=== PATIENT | female | born 1975 | race Caucasian/White ===

== ENCOUNTER → 2018-01-28 11:43 | Outpatient (CLI) | payer BC, SELFPAY ==
[2018-01-28 13:26] LABS: Add Manual Diff / Slide Review NO; Basophils Percent Auto 0.4 % (0-2); Eosinophils Percent Auto 6.8 % (2-4); Hematocrit 38.5 % (36-46); Hemoglobin 13.1 g/dL (12.0-16.0); Lymphocytes Percent Auto 24.6 % (25-40); Mean Corpuscular Hemoglobin 27.2 PG (26-34); Mean Corpuscular Volume 79.9 fL (80-100); Monocytes Percent Auto 6.1 % (3-14); Neutrophils Absolute Auto 5100 /uL (3000-5900); Neutrophils Percent Auto 62.1 % (50-75); Platelet Count 297 X10^3/uL (150-400); Red Blood Cell Count 4.81 X10^6/uL (4.0-5.2); Red Cell Distribution Width 13.8 % (11.6-14.8); White Blood Cell Count 8.2 X10^3/uL (4.5-11.0)
[2018-01-28 13:39] LABS: Hemoglobin A1C% w Est Avg Glu 6.3 % (4.0-6.0)
[2018-01-28 13:41] LABS: HEMOLYSIS < 15 (0-50); Iron 60 ug/dL (37-170)
[2018-01-28 13:44] LABS: Alanine Aminotransferase 33 IU/L (9-52); Albumin 4.4 g/dL (3.5-5.0); Albumin Globulin Ratio 1.2 (1.0-2.8); Alkaline Phosphatase 89 U/L (38-126); Aspartate Aminotransferase 33 IU/L (14-36); Bilirubin Total 0.7 mg/dL (0.2-1.3); Blood Urea Nitrogen 9 mg/dL (7-17); Carbon Dioxide 30 mmol/L (22-32); Chloride 103 mmol/L (98-107); Cholesterol 194 mg/dL (140-199); Estimated Glomerular Filt Rate > 60.0 mL/min (>60); Globulin 3.8 g/dL (1.7-4.1); Glucose 113 mg/dL (70-100); HDL Cholesterol 30 mg/dL (40-60); HEMOLYSIS < 15 (0-50); LDL Cholesterol Calculated 131 mg/dL (<100); Potassium 4.2 mmol/L (3.4-5.1); Sodium 144 mmol/L (137-145); Total Protein 8.2 g/dL (6.3-8.2); Triglycerides 167 mg/dL (35-150)
[2018-01-28 13:51] LABS: Percent Iron Saturation 17 % (15-50); Total Iron Binding Capacity 360 ug/dL (265-497); Transferrin 294 mg/dL (206-381)
[2018-01-28 13:54] LABS: INR 1.1 (0.9-1.3); Prothrombin Time 12.2 SECONDS (10.1-12.7)
[2018-01-28 13:57] LABS: PTT Partial Thromboplastin Tim 17 SECONDS (26.4-36.2)
[2018-01-28 14:12] LABS: Thyroid Stimulating Hormone 0.83 uIU/mL (0.47-4.68)
[2018-01-28 14:16] LABS: Ferritin 23.5 ng/mL (6.27-137)
[2018-01-28 14:34] LABS: Vitamin D 25 Hydroxy (D3) 28.4 ng/mL (30.0-100.0)
[2018-01-28 14:46] LABS: Vitamin B12 481 pg/mL (239-931)
[2018-01-31 15:06] LABS: Parathyroid Hormone Int 92 pg/mL (14-64)
[2018-01-31 16:40] LABS: Folate, RBC 581 ng/mL RBC (> 280)
== END ==
PROVIDERS: PCP Family Medicine; Visit Provider Surgery
DX: E88.81 Metabolic syndrome and other insulin resistance (principal)
CPT/HCPCS: 36415; 80053; 80061; 82306; 82607; 82728; 82747; 83036; 83540; 83550; 83970; 84443; 85025; 85610; 85730

== ENCOUNTER → 2018-06-20 16:39 | Outpatient (CLI) | payer BC, SELFPAY ==
[2018-06-20 17:52] LABS: Add Manual Diff / Slide Review NO; Basophils Absolute Auto 0 /uL (0-100); Basophils Percent Auto 0.3 % (0-2); Eosinophils Absolute Auto 100 /uL (0-450); Eosinophils Percent Auto 1.5 % (2-4); Hematocrit 35.1 % (36-46); Hemoglobin 11.3 g/dL (12.0-16.0); Lymphocytes Absolute Auto 2600 /uL (1100-4500); Lymphocytes Percent Auto 33.1 % (25-40); Mean Corpuscular HGB Conc 32.2 % (30-36); Mean Corpuscular Hemoglobin 27.2 PG (26-34); Mean Corpuscular Volume 84.6 fL (80-100); Monocytes Absolute Auto 600 /uL (0-900); Neutrophils Absolute Auto 4600 /uL (1500-7000); Neutrophils Percent Auto 58.1 % (50-75); Platelet Count 275 X10^3/uL (150-400); Red Blood Cell Count 4.14 X10^6/uL (4.0-5.2); White Blood Cell Count 7.9 X10^3/uL (4.5-11.0)
== END ==
PROVIDERS: PCP Family Medicine; Visit Provider Family Medicine
DX: N92.0 Excessive and frequent menstruation with regular cycle (principal)
CPT/HCPCS: 36415; 85025

== ENCOUNTER → 2018-08-19 10:54 | Outpatient (CLI) | payer BC, SELFPAY ==
[2018-08-19 11:53] LABS: Add Manual Diff / Slide Review NO; Basophils Absolute Auto 0 /uL (0-100); Basophils Percent Auto 0.4 % (0-2); Eosinophils Absolute Auto 100 /uL (0-450); Eosinophils Percent Auto 1.8 % (2-4); Hematocrit 35.7 % (36-46); Hemoglobin 11.8 g/dL (12.0-16.0); Lymphocytes Absolute Auto 1700 /uL (1100-4500); Lymphocytes Percent Auto 32.7 % (25-40); Mean Corpuscular HGB Conc 33.1 % (30-36); Mean Corpuscular Hemoglobin 26.9 PG (26-34); Mean Corpuscular Volume 81.2 fL (80-100); Monocytes Absolute Auto 300 /uL (0-900); Monocytes Percent Auto 6.4 % (3-14); Neutrophils Absolute Auto 3000 /uL (1500-7000); Neutrophils Percent Auto 58.7 % (50-75); Platelet Count 250 X10^3/uL (150-400); Red Blood Cell Count 4.39 X10^6/uL (4.0-5.2); Red Cell Distribution Width 12.8 % (11.6-14.8); White Blood Cell Count 5.1 X10^3/uL (4.5-11.0)
[2018-08-19 11:57] LABS: HEMOLYSIS < 15 (0-50)
[2018-08-19 12:02] LABS: Hemoglobin A1C% w Est Avg Glu 5.2 % (4.0-6.0)
[2018-08-19 12:03] LABS: Alanine Aminotransferase 24 IU/L (9-52); Albumin 4.4 g/dL (3.5-5.0); Albumin Globulin Ratio 1.3 (1.0-2.8); Alkaline Phosphatase 88 U/L (38-126); Aspartate Aminotransferase 21 IU/L (14-36); BUN Creatinine Ratio 14.3 (6-22); Bilirubin Total 0.8 mg/dL (0.2-1.3); Bilirubin Unconjugated 0.6 mg/dL (0.0-1.1); Blood Urea Nitrogen 10 mg/dL (7-17); Calcium 9.3 mg/dL (8.4-10.2); Carbon Dioxide 28 mmol/L (22-32); Chloride 103 mmol/L (98-107); Estimated Glomerular Filt Rate > 60.0 mL/min (>60); Globulin 3.3 g/dL (1.7-4.1); Glucose 87 mg/dL (70-100); Potassium 3.9 mmol/L (3.4-5.1); Sodium 140 mmol/L (137-145); Total Protein 7.7 g/dL (6.3-8.2)
[2018-08-19 12:22] LABS: HEMOLYSIS < 15 (0-50); Iron 45 ug/dL (37-170)
[2018-08-19 12:32] LABS: Percent Iron Saturation 11 % (15-50); Total Iron Binding Capacity 423 ug/dL (265-497); Transferrin 331 mg/dL (206-381)
[2018-08-19 12:36] LABS: Vitamin D 25 Hydroxy (D3) 36.9 ng/mL (30.0-100.0)
[2018-08-19 12:38] LABS: Ferritin 5.1 ng/mL (6.27-137)
[2018-08-19 13:10] LABS: Vitamin B12 626 pg/mL (239-931)
[2018-08-22 15:00] LABS: Parathyroid Hormone Int 79 pg/mL (14-64)
[2018-08-22 16:38] LABS: Vitamin B1 167 nmol/L (78-185)
[2018-08-23 10:30] LABS: Folate, RBC 738 ng/mL RBC (> 280)
[2018-08-24 03:36] LABS: Vitamin A 43 mcg/dL (38-98)
== END ==
PROVIDERS: PCP Family Medicine
DX: R10.9 Unspecified abdominal pain (principal); K91.2 Postsurgical malabsorption, not elsewhere classified
CPT/HCPCS: 36415; 80053; 80076; 82306; 82607; 82728; 82747; 83036; 83540; 83550; 83970; 84425; 84590; 85025

== ENCOUNTER → 2018-08-21 07:46 | Outpatient (CLI) | payer BC, SELFPAY ==
--- NOTE | 2018-08-21 | DI.US.S_ITS ---
PROCEDURE: US ABDOMEN LIMITED INDICATIONS: ABOMINAL WALL PAIN, R/O SEROMA/HERNIA TECHNIQUE: Real-time focused scanning was performed of the abdomen, with image documentation. COMPARISON: [facility], , ABDOMEN COMPLETE, 08/23/2016, 14:38. FINDINGS: Limited sonographic images in the right lower quadrant at the incision site demonstrates no mass lesion or fluid collection. No hernia is identified. IMPRESSION: No visualization of fluid collection or hernia. Dictated by: Elke Rizvi M.D. on 08/21/2018 at 14:04 Approved by: Elke Rizvi M.D. on 08/21/2018 at 14:05
== END ==
PROVIDERS: PCP Family Medicine
DX: R10.31 Right lower quadrant pain (principal)
CPT/HCPCS: 76705

== ENCOUNTER → 2019-06-13 12:39 | Outpatient (CLI) | payer OTHER, SELFPAY | PROVIDERS: PCP Family Medicine; Visit Provider Family Medicine | DX: L02.619 Cutaneous abscess of unspecified foot (principal) | CPT/HCPCS: 87070; 87075; 87205 ==

== ENCOUNTER → 2022-04-29 16:16 | Outpatient (CLI) | payer OTHER, SELFPAY ==
[2022-04-29 17:19] LABS: Influenza A - CEPHEID Flu A NEGATIVE (NEGATIVE); Influenza B - CEPHEID Flu B NEGATIVE (NEGATIVE); Respiratory Syncytial Virus Negative (Negative)
[2022-04-29 17:35] LABS: COVID-19 CEPHEID 4-PLEX PCR Negative (Negative)
== END ==
PROVIDERS: PCP Family Medicine; Visit Provider Nurse Practitioner Family
DX: J06.9 Acute upper respiratory infection, unspecified (principal); Z20.822 Contact with and (suspected) exposure to COVID-19
CPT/HCPCS: 0241U

== ENCOUNTER → 2022-10-27 15:24 | Outpatient (CLI) | payer OTHER, SELFPAY ==
--- NOTE | 2022-10-27 15:25 | DI.RAD.S_ITS ---
PROCEDURE: XR KNEE RT 3V INDICATIONS: Right knee pain TECHNIQUE: 3 views of the knee were acquired. COMPARISON: None. FINDINGS: Bones: No definite fractures or dislocations. Small ossicle adjacent to the medial femoral condyle. Osteophytic lipping at the patella. No suspicious bony lesions. Soft tissues: Trace joint effusion. No suspicious soft tissue calcifications. IMPRESSION: Small ossicle adjacent to the medial femoral condyle. Clinical significance is uncertain. Trace joint effusion. Osteophytic lipping at the patella. Early onset. If clinically indicated MRI could be considered for further evaluation. Dictated by: Surya Valentino M.D. on 10/27/2022 at 18:09 Approved by: Surya Valentino M.D. on 10/27/2022 at 18:12
== END ==
PROVIDERS: PCP Family Medicine; Referring Provider Physician Assistant; Visit Provider Physician Assistant
DX: M25.561 Pain in right knee (principal)
CPT/HCPCS: 73562

== ENCOUNTER → 2023-02-11 08:23 | Outpatient (CLI) | payer OTHER, SELFPAY ==
[2023-02-11 09:28] LABS: Alanine Aminotransferase 26 IU/L (<35); Albumin 4.4 g/dL (3.5-5.0); Albumin Globulin Ratio 1.5 (1.0-2.8); Alkaline Phosphatase 80 U/L (38-126); Aspartate Aminotransferase 27 IU/L (14-36); Bilirubin Total 0.8 mg/dL (0.2-1.3); Blood Urea Nitrogen 11 mg/dL (7-17); Calcium 9.3 mg/dL (8.4-10.2); Carbon Dioxide 24 mmol/L (22-32); Chloride 104 mmol/L (98-107); Cholesterol 170 mg/dL (140-199); Estimated Glomerular Filt Rate > 60 mL/min (>60); Glucose 90 mg/dL (70-100); HDL Cholesterol 45 mg/dL (40-60); HEMOLYSIS < 15 (0-50); LDL Cholesterol Calculated 102 mg/dL (<100); Potassium 4.7 mmol/L (3.4-5.1); Sodium 137 mmol/L (137-145); Total Protein 7.4 g/dL (6.3-8.2); Triglycerides 117 mg/dL (35-150)
[2023-02-11 14:40] LABS: Hemoglobin A1C% w Est Avg Glu 4.9 % (4.0-6.0)
== END ==
PROVIDERS: PCP Family Medicine; Referring Provider Family Medicine; Visit Provider Family Medicine
DX: R73.03 Prediabetes (principal)
CPT/HCPCS: 36415; 80053; 80061; 83036

== ENCOUNTER → 2023-07-02 09:27 | Outpatient (CLI) | payer OTHER, SELFPAY ==
--- NOTE | 2023-07-02 09:28 | DI.MG.S_ITS ---
BILATERAL DIGITAL SCREENING MAMMOGRAM 3D/2D WITH CAD: 07/02/2023 CLINICAL: Routine screening. Comparison is made to exam dated: 08/23/2016 mammogram - [facility]. Both breasts are heterogeneously dense, which may obscure small masses (category c / 51-75% glandular tissue). Current study was also evaluated with a Computer Aided Detection (CAD) system. There is a focal asymmetry in the left breast at 11 o'clock posterior depth. This is more prominent. No other significant masses, calcifications, or other findings are seen in either breast. IMPRESSION: INCOMPLETE: NEEDS ADDITIONAL IMAGING EVALUATION The focal asymmetry in the left breast is indeterminate. Additional views with possible ultrasound are recommended. Based on the Tyrer Cuzick model (a risk assessment model) the patient's lifetime risk is 16.1% and her 10 year risk is 3.7%. According to the ACR, ACS, and NCCN guidelines, an annual breast MRI exam along with mammogram is recommended if the patient's lifetime risk is 20% or greater. This exam was interpreted at Station ID: [id number]. NOTE: For mammograms, a report in lay terms will be sent to the patient. Approximately 15% of breast malignancies will not be visualized mammographically. In the management of a palpable breast mass, a negative mammogram must not discourage biopsy of a clinically suspicious lesion. Electronically Signed By: Kristopher Ni M.D. lc/:07/04/2023 13:10:53 letter sent: Additional Imaging Needed ACR BI-RADS Category 0: Incomplete 3340F
== END ==
LOC: MAMMO 09:28
PROVIDERS: PCP Family Medicine; Referring Provider Family Medicine; Visit Provider Family Medicine
DX: Z12.31 Encounter for screening mammogram for malignant neoplasm of breast (principal); R92.333 Mammographic heterogeneous density, bilateral breasts
CPT/HCPCS: 77063; 77067

== ENCOUNTER → 2023-07-14 09:33 | Outpatient (CLI) | payer OTHER, SELFPAY ==
--- NOTE | 2023-07-14 09:35 | DI.MG.S_ITS ---
UNILATERAL LEFT DIGITAL DIAGNOSTIC MAMMOGRAM 3D/2D WITH ADDITIONAL VIEWS: 07/14/2023 CLINICAL: Additional evaluation requested from prior study. Comparison is made to exams dated: 07/02/2023 mammogram and 08/23/2016 mammogram - [facility]. The left breast is heterogeneously dense, which may obscure small masses (category c / 51-75% glandular tissue). There is a possible focal asymmetry in the left breast at 11 o'clock posterior depth. This is not seen in additional views. No other significant masses or calcifications are seen in the breast. IMPRESSION: BENIGN There is no mammographic evidence of malignancy. The possible focal asymmetry in the left breast is consistent with fibroglandular tissue and is benign. A 1 year screening mammogram is recommended. Based on the Tyrer Cuzick model (a risk assessment model) the patient's lifetime risk is 16.1% and her 10 year risk is 3.7%. According to the ACR, ACS, and NCCN guidelines, an annual breast MRI exam along with mammogram is recommended if the patient's lifetime risk is 20% or greater. This exam was interpreted at Station ID: [id number]. NOTE: For mammograms, a report in lay terms will be sent to the patient. Approximately 15% of breast malignancies will not be visualized mammographically. In the management of a palpable breast mass, a negative mammogram must not discourage biopsy of a clinically suspicious lesion. Electronically Signed By: Surya Valentino M.D. slc/:07/14/2023 10:06:06 letter sent: Normal Exam ACR BI-RADS Category 2: Benign Finding(s) 3342F
== END ==
LOC: MAMMO 09:33
PROVIDERS: PCP Family Medicine; Referring Provider Family Medicine; Visit Provider Family Medicine
DX: R92.8 Other abnormal and inconclusive findings on diagnostic imaging of breast (principal); R92.332 Mammographic heterogeneous density, left breast
CPT/HCPCS: 77065; G0279

== ENCOUNTER → 2024-01-06 15:20 | Outpatient (CLI) | payer OTHER, SELFPAY ==
--- NOTE | 2024-01-06 15:21 | DI.RAD.S_ITS ---
PROCEDURE: XR KNEE LT 3V INDICATIONS: L I fall TECHNIQUE: 3 views of the knee were acquired. COMPARISON: [facility], CR, XR KNEE RT 3V, 10/27/2022, 15:21. FINDINGS: No left knee effusion. Multiple heterotopic ossifications superficial to the patella, representing prior injury. Minimal degenerative change of the patellofemoral compartment. No acute fracture or dislocation. IMPRESSION: No acute bony abnormality or significant effusion. Dictated by: Alicia Arnold M.D. on 01/06/2024 at 17:12 Approved by: Alicia Arnold M.D. on 01/06/2024 at 17:13
--- NOTE | 2024-01-06 15:21 | DI.RAD.S_ITS ---
PROCEDURE: XR WRIST RT MIN 3V INDICATIONS: L I fall TECHNIQUE: 4 views of the wrist were acquired. COMPARISON: None. FINDINGS: Ulnar negative variance. Linear lucency at the radial styloid, concerning for nondisplaced fracture versus artifact. Minimal degenerative change of the triscaphe and the 1st carpometacarpal joint. IMPRESSION: Findings concerning for nondisplaced radial styloid fracture versus artifact. Recommend follow-up radiograph in 7-10 days. Dictated by: Alicia Arnold M.D. on 01/06/2024 at 17:08 Approved by: Alicia Arnold M.D. on 01/06/2024 at 17:12
== END ==
PROVIDERS: PCP Family Medicine; Referring Provider Nurse Practitioner Family; Visit Provider Nurse Practitioner Family
DX: S66.911A Strain of unspecified muscle, fascia and tendon at wrist and hand level, right hand, initial encounter (principal); S80.02XA Contusion of left knee, initial encounter; W19.XXXA Unspecified fall, initial encounter
CPT/HCPCS: 73110; 73562

== ENCOUNTER → 2024-03-10 17:45 | Outpatient (CLI) | payer OTHER, SELFPAY ==
[2024-03-10 18:47] LABS: Influenza A - CEPHEID Flu A NEGATIVE (NEGATIVE); Influenza B - CEPHEID Flu B NEGATIVE (NEGATIVE); Respiratory Syncytial Virus Negative (Negative)
[2024-03-10 19:28] LABS: COVID-19 CEPHEID 4-PLEX PCR Negative (Negative)
== END ==
PROVIDERS: PCP Family Medicine; Referring Provider Nurse Practitioner Family; Visit Provider Nurse Practitioner Family
DX: J02.9 Acute pharyngitis, unspecified (principal); R05.1 Acute cough; B34.9 Viral infection, unspecified
CPT/HCPCS: 0241U; 87070

== ENCOUNTER → 2024-07-10 08:46 | Outpatient (CLI) | payer OTHER, SELFPAY ==
[2024-07-10 10:17] LABS: Alanine Aminotransferase 20 IU/L (<35); Albumin 4.4 g/dL (3.5-5.0); Albumin Globulin Ratio 1.6 (1.0-2.8); Alkaline Phosphatase 87 U/L (38-126); Aspartate Aminotransferase 26 IU/L (14-36); BUN Creatinine Ratio 17.4 (6-22); Bilirubin Total 0.8 mg/dL (0.2-1.3); Blood Urea Nitrogen 12 mg/dL (7-17); Calcium 9.1 mg/dL (8.4-10.2); Carbon Dioxide 26 mmol/L (22-32); Chloride 103 mmol/L (98-107); Estimated Glomerular Filt Rate > 60 mL/min (>60); Globulin 2.8 g/dL (1.7-4.1); Glucose 95 mg/dL (70-100); HEMOLYSIS < 15 (0-50); Potassium 4.7 mmol/L (3.4-5.1); Sodium 139 mmol/L (137-145); Total Protein 7.2 g/dL (6.3-8.2)
== END ==
PROVIDERS: PCP Family Medicine; Referring Provider Family Medicine; Visit Provider Family Medicine
DX: E28.2 Polycystic ovarian syndrome (principal); R73.03 Prediabetes; Z68.42 Body mass index [BMI] 45.0-49.9, adult
CPT/HCPCS: 36415; 80053

== ENCOUNTER → 2024-07-17 07:49 | Outpatient (CLI) | payer OTHER, SELFPAY ==
--- NOTE | 2024-07-17 07:50 | DI.RAD.S_ITS ---
PROCEDURE: XR WRIST RT 2V INDICATIONS: pain, old injury in 2023 TECHNIQUE: 2 views of the wrist were acquired. COMPARISON: None. FINDINGS: Bones: No fractures or dislocations. No suspicious bony lesions. Soft tissues: No suspicious soft tissue calcifications. IMPRESSION: No acute bony abnormality. Dictated by: Keisha Reid MD, PhD on 07/17/2024 at 9:37 Approved by: Keisha Reid MD, PhD on 07/17/2024 at 9:38
== END ==
PROVIDERS: PCP Family Medicine; Referring Provider Family Medicine; Visit Provider Family Medicine
DX: M25.531 Pain in right wrist (principal)
CPT/HCPCS: 73100

== ENCOUNTER → 2024-11-06 15:32 | Outpatient (CLI) | payer OTHER, SELFPAY ==
--- NOTE | 2024-11-06 15:34 | DI.MRI.S_ITS ---
PROCEDURE: MR ANGIO HEAD WO CON INDICATIONS: family hx brain aneurysm TECHNIQUE: Noncontrast axial 3-D prat-qa-lodiaa MR angiogram, with 3-dimensional maximum intensity projection (MIP) reformats of the internal carotid arteries and posterior circulation then performed. COMPARISON: None. FINDINGS: Image quality: Excellent. Anterior circulation: Intracranial internal carotid arteries demonstrate normal size and intraluminal flow signal. The flow within the paired anterior cerebral arteries is normal and symmetric. The flow within the middle cerebral arteries is normal and symmetric. The anterior communicating artery is seen. No stenoses, occlusions, or aneurysms. Posterior circulation: Visualized portions of the vertebral arteries demonstrate normal caliber, and join to form a normal appearing basilar artery. The flow within the posterior cerebral arteries is normal and symmetric. No stenoses, occlusions, or aneurysms. IMPRESSION: Negative for aneurysm. No significant intracranial arterial abnormality is seen. Dictated by: Wan Womack M.D. on 11/06/2024 at 16:51 Approved by: Wan Womack M.D. on 11/06/2024 at 16:53
--- NOTE | 2024-11-06 15:34 | DI.MRI.S_ITS ---
PROCEDURE: MR WRIST RT WO CON INDICATIONS: wrist pain TECHNIQUE: Noncontrast coronal proton density fast spin echo and T2 fast spin echo with fat saturation; coronal 3-D gradient echo, axial T1 spin echo and T2 fast spin echo with fat saturation, sagittal T1 spin echo through the wrist. COMPARISON: [facility], CR, XR WRIST RT 2V, 07/17/2024, 7:52. FINDINGS: Image quality: Excellent. Bones and cartilage: The carpal bones are normally aligned. Areas of mild edema in the lunate and triquetrum may be degenerative or secondary to mild osseous contusions. No fracture line is seen. No evidence for avascular necrosis. Mild degenerative changes at the 1st carpometacarpal joint and triscaphe joint. Mild negative ulnar variance measuring up to 3 mm. Carpal ligaments: The scapholunate and lunotriquetral ligaments appear intact. On sagittal images, the pisohamate ligament appears intact. Triangular fibrocartilage complex: The triangular fibrocartilage appears intact. Tendons and soft tissues: Mild volar bowing of the flexor retinaculum. Median nerve is mildly thickened without increased T2-weighted signal. The ulnar nerve appears normal within Guyon's canal. Mild extensor carpi ulnaris tendinosis and tenosynovitis. Mild tenosynovitis of the 4th extensor compartment tendons at the level of the distal radius to the level of the distal carpal row. Mild tendinosis of the 1st extensor compartment tendons without significant tenosynovitis. The remaining extensor tendon compartments demonstrate normal morphology, without pathologic tendon sheath fluid. Ganglion cyst dorsal to the midcarpal row measures 9 x 8 by 3 mm. Ganglion cyst at the volar radial aspect of the radiocarpal joint measures 10 x 2 x 13 mm. Ganglion cyst at the volar aspect of the 3rd carpometacarpal joint measures approximately 9 x 5 x 3 mm. IMPRESSION: 1. Mild osseous edema in the volar aspect of the lunate and triquetrum may be secondary to degenerative subchondral edema versus mild osseous contusions. No fracture line is seen. 2. Negative ulnar variance. No signs of lunate osteonecrosis. 3. Mild extensor carpi ulnaris tendinosis and tenosynovitis. Mild tenosynovitis of the 4th extensor compartment tendons. 4. Mild tendinosis of the abductor pollicis longus and extensor pollicis brevis tendons in the 1st compartment. 5. Volar bowing of the flexor retinaculum and mild thickening of the median nerve are nonspecific but can be seen in the setting of median neuritis/carpal tunnel syndrome and correlation with neurologic exam findings is recommended. 6. Multiple small ganglion cyst about the wrist. Approved by: Mateusz Galan M.D. on 11/07/2024 at 13:08
== END ==
LOC: MRI 15:33
PROVIDERS: PCP Family Medicine; Referring Provider Family Medicine; Visit Provider Family Medicine
DX: M67.431 Ganglion, right wrist (principal); M65.931 Unspecified synovitis and tenosynovitis, right forearm; M25.431 Effusion, right wrist; M25.539 Pain in unspecified wrist; Z13.89 Encounter for screening for other disorder; Z82.49 Family history of ischemic heart disease and other diseases of the circulatory system
CPT/HCPCS: 70544; 73221